=== PATIENT | female | born 1960 | race American Indian/Alaskan Native ===

== ENCOUNTER 2019-05-22 12:31 | Emergency (ER) | payer OTHER ==
--- NOTE | 2019-05-22 12:46 | Event Note ---
ED Screening Note Date of service: 05/22/19 Time: 12:42 ED Screening Note: 59 y/o female comes in for right side depression of lip. Has htn and not taking her blood pressure medication is a while. No other deficits. This initial assessment/diagnostic orders/clinical plan/treatment(s) is/are s ubject to change based on patients health status, clinical progression and re- assessment by fellow clinical providers in the ED. Further treatment and workup at subsequent clinical providers discretion. Patient/guardian urged not to elope from the ED as their condition may be serious if not clinically assessed and managed. Initial orders include:
[2019-05-22 13:04] LABS: Basophils # (Auto) 0.1 K/mm3 (0.0-0.1); Eosinophils # (Auto) 0.1 K/mm3 (0.0-0.4); Eosinophils % (Auto) 2.1 % (0.0-4.3); Hematocrit 47.4 % (30.3-42.9); Hemoglobin 16.3 gm/dl (10.1-14.3); Lymphocytes # (Auto) 2.8 K/mm3 (1.2-5.4); Lymphocytes % (Auto) 40.4 % (13.4-35.0); Mean Corpuscular HGB Conc 34 % (30-34); Mean Corpuscular Volume 92 fl (79-97); Monocytes # (Auto) 0.7 K/mm3 (0.0-0.8); Monocytes % (Auto) 10.3 % (0.0-7.3); Platelet Count 197 K/mm3 (140-440); Red Blood Count 5.18 M/mm3 (3.65-5.03); Red Cell Distribution Width 15.5 % (13.2-15.2)
[2019-05-22 13:28] LABS: Alanine Aminotransferase 10 units/L (7-56); Albumin 4.1 g/dL (3.9-5); BUN/Creatinine Ratio 32; Blood Urea Nitrogen 16 mg/dL (7-17); Calcium 9.8 mg/dL (8.4-10.2); Hemolysis Index 59
[2019-05-22] MEDS ORDERED: NORMODYNE PO ONE (15:00)
--- NOTE | 2019-05-22 15:17 | Emergency Department Report ---
ED Neuro Deficit HPI - General Chief Complaint: Neuro Symptoms/Deficit Stated Complaint: MOUTH DROOPING Time Seen by Provider: 05/22/19 12:41 Source: patient Mode of arrival: Ambulatory Limitations: No Limitations - History of Present Illness Initial Comments: CC: "I think my finch's palsy has come back." HPI: Mrs. Pate is a very pleasant 59-year-old female with history of right- sided Finch's palsy and hypertension who presents with right facial paralysis. For The past 2 weeks she's had right facial palsy. She awakened one morning with the symptoms about 2 weeks ago. She denies headache. Denies visual changes. She denies paresthesias or paralysis. No difficulty walking. She has been without her blood pressure medication for the past year. Previously documented medications include labetalol and lisinopril. -: Gradual, week(s) (2) Location: right face History of same: Yes Severity: mild Improves With: none Worsens With: none On Anticoagulants: No Context: gradual onset Associated Symptoms: denies other symptoms - Related Data Home Medications: Previous Rx's Medication Instructions Recorded Last Taken Type Labetalol [Labetalol 200mg TAB] 200 mg PO BID #60 tablet 08/17/16 09/17/16 Rx Ibuprofen [Motrin] 800 mg PO Q8HR PRN #10 tablet 09/04/16 Unknown Rx Lisinopril [Zestril TAB] 10 mg PO QDAY #30 tablet 09/04/16 09/17/16 Rx Moxifloxacin 0.5% [Vigamox] 1 drops OD Q8H #1 bottle 09/18/16 Unknown Rx Acyclovir [Zovirax Tab] 400 mg PO TID 7 Days #21 tab 05/22/19 Unknown Rx Lisinopril/Hydrochlorothiazide 1 tab PO QDAY 30 Days #30 tab 05/22/19 Unknown Rx [Zestoretic 20-25 mg] Prednisone [predniSONE 10 mg 10 mg PO .TAPER #1 tab.ds.pk 05/22/19 Unknown Rx (6-Day Pack, 21 Tabs)] Allergies/Adverse Reactions: Allergies Allergy/AdvReac Type Severity Reaction Status Date / Time No Known Allergies Allergy Unverified 07/07/16 12:47 ED Review of Systems ROS: Stated complaint: MOUTH DROOPING Other details as noted in HPI Comment: All other systems reviewed and negative Constitutional: denies: fever, malaise Cardiovascular: denies: chest pain Gastrointestinal: denies: abdominal pain Neurological: denies: headache, weakness, numbness, paresthesias, confusion, abnormal gait ED Past Medical Hx - Past Medical History Previous Medical History?: Yes Hx Hypertension: Yes Hx Asthma: Yes (bronchitis) Additional medical history: Finch's palsy - Surgical History Past Surgical History?: No - Social History Smoking Status: Current Every Day Smoker Substance Use Type: None - Medications Home Medications: Home Medications Medication Instructions Recorded Confirmed Last Taken Type Labetalol [Labetalol 200mg TAB] 200 mg PO BID #60 tablet 08/17/16 09/17/16 Rx Ibuprofen [Motrin] 800 mg PO Q8HR PRN #10 tablet 09/04/16 Unknown Rx Lisinopril [Zestril TAB] 10 mg PO QDAY #30 tablet 09/04/16 09/17/16 Rx Moxifloxacin 0.5% [Vigamox] 1 drops OD Q8H #1 bottle 09/18/16 Unknown Rx Acyclovir [Zovirax Tab] 400 mg PO TID 7 Days #21 tab 05/22/19 Unknown Rx Lisinopril/Hydrochlorothiazide 1 tab PO QDAY 30 Days #30 tab 05/22/19 Unknown Rx [Zestoretic 20-25 mg] Prednisone [predniSONE 10 mg 10 mg PO .TAPER #1 tab.ds.pk 05/22/19 Unknown Rx (6-Day Pack, 21 Tabs)] ED Neuro Physical Exam - General Limitations: No Limitations General appearance: alert, in no apparent distress Suspected Stroke: No - Head Head exam: Present: atraumatic, normocephalic - Eye Eye exam: Present: normal appearance - ENT ENT exam: Present: mucous membranes moist - Neck Neck exam: Present: normal inspection, full ROM - Respiratory Respiratory exam: Present: normal lung sounds bilaterally. Absent: respiratory distress, wheezes, rales, rhonchi - Cardiovascular Cardiovascular Exam: Present: regular rate, normal rhythm, normal heart sounds. Absent: systolic murmur, diastolic murmur, rubs, gallop - GI/Abdominal GI/Abdominal exam: Present: soft, normal bowel sounds. Absent: distended, tenderness, guarding, rebound - Extremities Exam Extremities exam: Present: normal inspection - Back Exam Back exam: Present: normal inspection - Neurological Exam Neurological exam: Present: alert, oriented X3, normal gait, other (right facial palsy including the upper and lower face intact sensation to light touch in the face) - NIHSS Assessment Interval: Baseline 1a. Level of Consciousness: alert/keenly responsive 1b. LOC Questions: answers both correctly 1c. LOC Commands: performs tasks correctly 2. Best Gaze: forced deviation 3. Visual: no visual loss 4. Facial Palsy: partial paralysis 5b. Motor Arm Right: no drift 5a. Motor Arm Left: no drift 6a. Motor Leg Left: no drift 6b. Motor Leg Right: no drift 7. Limb Ataxia: absent 8. Sensory: normal 9. Best Language: no aphasia 10. Dysarthria: normal 11. Extinction/Inattention: no abnormality Total Score: 4 Stroke Severity: Minor Stroke - Psychiatric Psychiatric exam: Present: normal affect, normal mood - Skin Skin exam: Present: warm, dry, intact, normal color. Absent: rash ED Course Vital Signs 05/22/19 12:40 Temperature 98.3 F Pulse Rate 91 H Respiratory 20 Rate Blood Pressure 235/135 O2 Sat by Pulse 94 Oximetry - Lab Data Result diagrams: 05/22/19 12:50 05/22/19 12:50 Lab Results 05/22/19 05/22/19 Range/Units 12:50 12:50 WBC 6.9 (4.5-11.0) K/mm3 RBC 5.18 H (3.65-5.03) M/mm3 Hgb 16.3 H (10.1-14.3) gm/dl Hct 47.4 H (30.3-42.9) % MCV 92 (79-97) fl MCH 32 (28-32) pg MCHC 34 (30-34) % RDW 15.5 H (13.2-15.2) % Plt Count 197 (140-440) K/mm3 Lymph % (Auto) 40.4 H (13.4-35.0) % Howell % (Auto) 10.3 H (0.0-7.3) % Eos % (Auto) 2.1 (0.0-4.3) % Baso % (Auto) 1.0 (0.0-1.8) % Lymph # 2.8 (1.2-5.4) K/mm3 Howell # 0.7 (0.0-0.8) K/mm3 Eos # 0.1 (0.0-0.4) K/mm3 Baso # 0.1 (0.0-0.1) K/mm3 Seg Neutrophils % 46.2 (40.0-70.0) % Seg Neutrophils # 3.2 (1.8-7.7) K/mm3 Sodium 141 (137-145) mmol/L Potassium 3.9 (3.6-5.0) mmol/L Chloride 103.8 (98-107) mmol/L Carbon Dioxide 28 (22-30) mmol/L Anion Gap 13 mmol/L BUN 16 (7-17) mg/dL Creatinine 0.5 L (0.7-1.2) mg/dL Estimated GFR > 60 ml/min BUN/Creatinine Ratio 32 % Glucose 107 H (65-100) mg/dL Calcium 9.8 (8.4-10.2) mg/dL Total Bilirubin 0.70 (0.1-1.2) mg/dL AST 20 (5-40) units/L ALT 10 (7-56) units/L Alkaline Phosphatase 89 (35-129) units/L Total Protein 8.0 (6.3-8.2) g/dL Albumin 4.1 (3.9-5) g/dL Albumin/Globulin Ratio 1.1 % - Medical Decision Making 1. Right facial palsy: Prescription for prednisone and acyclovir provided recommended protection of the cornea night with taping of the eyelid and copious lubrication 2. Asymptomatic Hypertensive urgency due to medication noncompliance for the past year., She kindly requested refill of her previous medications. According to electronic medical record, she was previously taking lisinopril and labetalol. I provided prescription for Lisinopril HCTZ I reviewed lab CBC chemistry within normal limits including normal kidney function. GFR greater than 60. Critical care attestation.: If time is entered above; I have spent that time in minutes in the direct care of this critically ill patient, excluding procedure time. ED Disposition Clinical Impression: Finch's palsy, Hypertensive urgency, malignant Disposition: - TO HOME OR SELFCARE Is pt being admited?: No Does the pt Need Aspirin: No Condition: Stable Instructions: Chronic Hypertension (ED), Finch Palsy (ED) Prescriptions: Prednisone [predniSONE 10 mg (6-Day Pack, 21 Tabs)] 10 mg PO .TAPER #1 tab.ds.pk Lisinopril/Hydrochlorothiazide [Zestoretic 20-25 mg] 1 tab PO QDAY 30 Days #30 tab Acyclovir [Zovirax Tab] 400 mg PO TID 7 Days #21 tab Referrals: ANGELA KAUFFMAN MD [Primary Care Provider] - 3-5 Days
[2019-05-22 15:51] VITALS: BP 210/98
== END 2019-05-22 15:52 | disposition home or self-care (01) ==
LOC: ED 12:31
DX: G51.0 Bell's palsy (principal); I16.0 Hypertensive urgency; I10 Essential (primary) hypertension; J45.909 Unspecified asthma, uncomplicated; F17.200 Nicotine dependence, unspecified, uncomplicated; Z79.899 Other long term (current) drug therapy
CPT/HCPCS: 36415; 80053; 85025

== ENCOUNTER 2019-07-19 17:21 | Emergency (ER) | payer SELFPAY ==
--- NOTE | 2019-07-19 17:27 | Event Note ---
ED Screening Note Date of service: 07/19/19 Time: 17:26 ED Screening Note: 59 y o female presents with throat pain x 3 days pain with swallowing This initial assessment/diagnostic orders/clinical plan/treatment(s) is/are subject to change based on patients health status, clinical progression and re- assessment by fellow clinical providers in the ED. Further treatment and workup at subsequent clinical providers discretion. Patient/guardian urged not to elope from the ED as their condition may be serious if not clinically assessed and managed. Initial orders include: rapid strep acc eval
[2019-07-19] MEDS ORDERED: LIDOCAINE VISCOUS 2% 15 ML ORAL LIQD PO ONE (20:00)
[2019-07-19] MEDS ORDERED: dexAMETHasone 20 MG/5 ML VIAL IM ONE (20:00)
[2019-07-19] MEDS ORDERED: KETOROLAC 30 MG/1 ML INJ IM ONE (20:00)
[2019-07-19] MEDS ORDERED: ONDANSETRON 4 MG ODT TAB PO ONE (20:01)
[2019-07-19] MEDS ORDERED: AMOXICILLIN/K CLAV 875/125MG TAB PO ONE (20:01)
--- NOTE | 2019-07-19 20:24 | Emergency Department Report ---
ED General Adult HPI - General Chief complaint: Upper Respiratory Infection Stated complaint: STREP THROAT/HEADACHE Time Seen by Provider: 07/19/19 17:25 Source: patient Mode of arrival: Ambulatory Limitations: No Limitations - History of Present Illness Initial comments: Patient is a 59-year-old -[place]ammar[place] female who presents to the ED, no acute onset persistent severe sore throat, dysphagia, nasal and sinus congestion, headache, chills and diffuse body aches for the last 3 days. Patient states that she has been gargling salt water with no relief. Patient denies dizziness, fever, chest pain, cough, shortness of breath, abdominal pain, change in vision, syncope or nausea and vomiting or diarrhea. MD Complaint: Sore throat; headache, chills, body aches -: Sudden, days(s) (3) Location: head, mouth Radiation: non-radiation Severity scale (0 -10): 8 Quality: aching, sharp Consistency: constant Improves with: none Worsens with: none Associated Symptoms: denies other symptoms, headaches, loss of appetite. denies: confusion, chest pain, cough, diaphoresis, fever/chills, malaise, nausea/vomiting, rash, seizure, shortness of breath, syncope, weakness Treatments Prior to Arrival: none - Related Data Previous Rx's Medication Instructions Recorded Last Taken Type Labetalol [Labetalol 200mg TAB] 200 mg PO BID #60 tablet 08/17/16 09/17/16 Rx Ibuprofen [Motrin] 800 mg PO Q8HR PRN #10 tablet 09/04/16 Unknown Rx Lisinopril [Zestril TAB] 10 mg PO QDAY #30 tablet 09/04/16 09/17/16 Rx Moxifloxacin 0.5% [Vigamox] 1 drops OD Q8H #1 bottle 09/18/16 Unknown Rx Acyclovir [Zovirax Tab] 400 mg PO TID 7 Days #21 tab 05/22/19 Unknown Rx Lisinopril/Hydrochlorothiazide 1 tab PO QDAY 30 Days #30 tab 05/22/19 Unknown Rx [Zestoretic 20-25 mg] Prednisone [predniSONE 10 mg 10 mg PO .TAPER #1 tab.ds.pk 05/22/19 Unknown Rx (6-Day Pack, 21 Tabs)] Ibuprofen [Motrin] 600 mg PO Q8H PRN #24 tablet 07/19/19 Unknown Rx Lidocaine Viscous 2% 10 ml PO Q6H PRN #120 ml 07/19/19 Unknown Rx Ondansetron [Zofran Odt] 4 mg PO Q6HR PRN #12 tab.rapdis 07/19/19 Unknown Rx Penicillin V Potassium 500 mg PO Q6H #40 tablet 07/19/19 Unknown Rx methylPREDNISolone [Medrol 4MG 4 mg PO DAILY #21 tab.ds.pk 07/19/19 Unknown Rx DOSEPAK (21 tabs)] Allergies Allergy/AdvReac Type Severity Reaction Status Date / Time No Known Allergies Allergy Unverified 07/07/16 12:47 ED Review of Systems ROS: Stated complaint: STREP THROAT/HEADACHE Other details as noted in HPI Constitutional: denies: chills, fever Eyes: denies: eye pain, eye discharge, vision change ENT: throat pain, congestion. denies: ear pain Respiratory: denies: cough, orthopnea, shortness of breath, SOB with exertion, SOB at rest, wheezing Cardiovascular: denies: chest pain, palpitations Endocrine: no symptoms reported Gastrointestinal: denies: abdominal pain, nausea, diarrhea Genitourinary: denies: urgency, dysuria, discharge Musculoskeletal: denies: back pain, joint swelling, arthralgia Skin: denies: rash, lesions Neurological: denies: headache, weakness, paresthesias Psychiatric: denies: anxiety, depression Hematological/Lymphatic: denies: easy bleeding, easy bruising ED Past Medical Hx - Past Medical History Hx Hypertension: Yes Hx Asthma: Yes (bronchitis) Additional medical history: Finch's palsy - Social History Smoking Status: Current Every Day Smoker Substance Use Type: None - Medications Home Medications: Home Medications Medication Instructions Recorded Confirmed Last Taken Type Labetalol [Labetalol 200mg TAB] 200 mg PO BID #60 tablet 08/17/16 09/17/16 Rx Ibuprofen [Motrin] 800 mg PO Q8HR PRN #10 tablet 09/04/16 Unknown Rx Lisinopril [Zestril TAB] 10 mg PO QDAY #30 tablet 09/04/16 09/17/16 Rx Moxifloxacin 0.5% [Vigamox] 1 drops OD Q8H #1 bottle 09/18/16 Unknown Rx Acyclovir [Zovirax Tab] 400 mg PO TID 7 Days #21 tab 05/22/19 Unknown Rx Lisinopril/Hydrochlorothiazide 1 tab PO QDAY 30 Days #30 tab 05/22/19 Unknown Rx [Zestoretic 20-25 mg] Prednisone [predniSONE 10 mg 10 mg PO .TAPER #1 tab.ds.pk 05/22/19 Unknown Rx (6-Day Pack, 21 Tabs)] Ibuprofen [Motrin] 600 mg PO Q8H PRN #24 tablet 07/19/19 Unknown Rx Lidocaine Viscous 2% 10 ml PO Q6H PRN #120 ml 07/19/19 Unknown Rx Ondansetron [Zofran Odt] 4 mg PO Q6HR PRN #12 tab.rapdis 07/19/19 Unknown Rx Penicillin V Potassium 500 mg PO Q6H #40 tablet 07/19/19 Unknown Rx methylPREDNISolone [Medrol 4MG 4 mg PO DAILY #21 tab.ds.pk 07/19/19 Unknown Rx DOSEPAK (21 tabs)] ED Physical Exam - General Limitations: No Limitations General appearance: alert, in no apparent distress - Head Head exam: Present: atraumatic, normocephalic, normal inspection - Eye Eye exam: Present: normal appearance, PERRL, EOMI Pupils: Present: normal accommodation - ENT ENT exam: Present: normal exam, mucous membranes moist, TM's normal bilaterally, normal external ear exam, other (swollen, erythematous oropharyngeal area with tenderness of anterior cervical lymph nodes.) - Neck Neck exam: Present: normal inspection, full ROM, lymphadenopathy. Absent: tenderness - Respiratory Respiratory exam: Present: normal lung sounds bilaterally. Absent: respiratory distress, wheezes, rhonchi, chest wall tenderness, accessory muscle use, decreased breath sounds - Cardiovascular Cardiovascular Exam: Present: regular rate, normal rhythm, normal heart sounds. Absent: systolic murmur, diastolic murmur, rubs, gallop - GI/Abdominal GI/Abdominal exam: Present: soft, normal bowel sounds. Absent: tenderness, hyperactive bowel sounds, hypoactive bowel sounds, organomegaly - Rectal Rectal exam: Present: deferred - Extremities Exam Extremities exam: Present: normal inspection, full ROM, normal capillary refill - Back Exam Back exam: Present: normal inspection, full ROM. Absent: CVA tenderness (L), muscle spasm, vertebral tenderness - Neurological Exam Neurological exam: Present: alert, oriented X3, CN II-XII intact, normal gait, reflexes normal - Psychiatric Psychiatric exam: Present: normal affect, normal mood - Skin Skin exam: Present: warm, dry, intact, normal color. Absent: rash ED Course - Reevaluation(s) Reevaluation #1: 07/19/19 20:22 This is a 59-year-old Afro-[place] female who presented to the ED with severe sore throat, diffuse body aches and headache for the last 3 days. In the ED, patient is alert and oriented 3 and is not in distress but appears to be in pain. Patient was treated in the ED initially with antibiotics and pain medications and discharged home on medications. Patient is being discharged home on antibiotics for suspected streptococcal pharyngitis. Patient was advised to follow-up with her primary care physician in 7-10 days for reevaluation or return to the ED immediately if symptoms get worse. ED Medical Decision Making - Medical Decision Making This is a 59-year-old Afro-[place] female who presented to the ED with severe sore throat, diffuse body aches and headache for the last 3 days. In the ED, patient is alert and oriented 3 and is not in distress but appears to be in pain. Patient was treated in the ED initially with antibiotics and pain medications and discharged home on medications. Patient is being discharged home on antibiotics for suspected streptococcal pharyngitis. Patient was a dvised to follow-up with her primary care physician in 7-10 days for reevaluation or return to the ED immediately if symptoms get worse. - Differential Diagnosis Strep pharyngitis; acute Tonsillitis; acute URI Critical care attestation.: If time is entered above; I have spent that time in minutes in the direct care of this critically ill patient, excluding procedure time. ED Disposition Clinical Impression: Acute upper respiratory infection Acute pharyngitis Qualifiers: Pharyngitis/tonsillitis etiology: unspecified etiology Qualified Code(s): J02.9 - Acute pharyngitis, unspecified Acute tonsillitis Qualifiers: Pharyngitis/tonsillitis etiology: unspecified etiology Qualified Code(s): J03.90 - Acute tonsillitis, unspecified Disposition: DC-01 TO HOME OR SELFCARE Is pt being admited?: No Does the pt Need Aspirin: No Condition: Stable Instructions: Pharyngitis (ED), Tonsillitis (ED), Upper Respiratory Infection (ED) Additional Instructions: Take medication with food, drink plenty of fluids and follow-up with your primary care physician in 7-10 days for reevaluation. Return to the ED immediately if symptoms get worse Prescriptions: Lidocaine Viscous 2% 10 ml PO Q6H PRN #120 ml PRN Reason: Pain , Severe (7-10) methylPREDNISolone [Medrol 4MG DOSEPAK (21 tabs)] 4 mg PO DAILY #21 tab.ds.pk Ibuprofen [Motrin] 600 mg PO Q8H PRN #24 tablet PRN Reason: Pain Penicillin V Potassium 500 mg PO Q6H #40 tablet Ondansetron [Zofran Odt] 4 mg PO Q6HR PRN #12 tab.rapdis PRN Reason: Nausea Referrals: [facility] [Outside] - 3-5 Days Time of Disposition: 20:25 Print Language: NIGERIAN
[2019-07-19 20:39] VITALS: BP 163/99
== END 2019-07-19 20:37 | disposition home or self-care (01) ==
LOC: ED 17:21
DX: J02.9 Acute pharyngitis, unspecified (principal); J06.9 Acute upper respiratory infection, unspecified; F17.200 Nicotine dependence, unspecified, uncomplicated; I10 Essential (primary) hypertension; J45.909 Unspecified asthma, uncomplicated
CPT/HCPCS: 87116; 87430; 96372; 99283; J1100; J1885; Q0162